=== PATIENT | female | born 1955 | race Caucasian/White ===

== ENCOUNTER → 2016-03-02 | Outpatient (CLI) | payer OTHER ==
[~2016-03-02] MED LIST: 00186-0370-20 IH; ALBUTEROL S0.4 MG/ML; AMBIEN 5MG TABLE5 MG PO; ASPI325T6 PO; ASPIRIN 81M81 MG/TA2 PO; ATARAX10 MG PO; ATORVASTATIN; CALTRATE-600 W600 MG PO; CARBIDOPA & LEV1 TAB PO; CELEXA40 MG PO; CHANTIX 1MG1 MG PO; CITALOPRAM40 MG PO; CLARITIN 1010 MG/TAB PO; COLACE 100100 MG/CAP PO; CRESTOR5 MG PO; DEPAKOTE500 MG PO; DIOVAN80 M1 PO; ECOTRIN325 MG PO; EFFIENT10 MG PO; EPA FISH OIL1 SGL PO; FLEXERIL 1010 MG/TAB PO; FOLIC ACID0.4 MG PO; HALDOL .5M0.5 MG/TAB PO; HALDOL 1MG T1 MG/TAB PO; HALDOL1 MG PO; HYOSCYAMINE; INDERAL LA 60MG60 MG PO; INDERAL60 MG PO; IPRATROPIUM BROM3 M1 IH; IRON325 M1 PO; K-DUR; KLONOPIN 1MG1 MG PO; KLOR-CON 1010 MEQ PO; LEXAPRO 10MG10 MG PO; LEXAPRO20 MG PO; LIBRIUM; LIPITOR 40MG TA40 MG PO; LISINOPRIL20 MG PO; LOPRESSOR 225 MG/TAB PO; MAG-OX 400400 MG/TAB PO; MIRALAX PA17 GM/Dose PO; MIRAPEX; MOTRIN 600600 MG/TAB PO; MULTI VITAMINS1 TAB PO; NIASPAN1000 MG PO; NIASPAN500 MG PO; NITROSTAT0.4 MG/TAB SL; NORCO 325 MG-51 TAB PO; NORVASC2.5 MG PO; PEPCID 20MG TAB20 MG PO; PLAVIX 75MG TAB75 MG PO; PRAVACHOL 20MG20 MG PO; PREDNISONE20 MG PO; PRILOSEC 20MG20 MG PO; PROBIOTIC FORMU1 CAP PO; PROTONIX 40MG T40 MG PO; PROTONIX40 MG PO; PROTONIX40 MG/Pack PO; PROVENTIL0.09 MG/A1 IH; RANEXA1000 MG PO; RT SPIRIVA18 MCG IH; SINGULAIR 110 MG/TAB PO; SINGULAIR10 MG PO; SYMBICORT1 AE1 IH; TETRACYCLI500 MG/CAP PO; THEO-24100 MG PO; TRILIPIX 135MG PO; TYLENOL 325MG325 MG PO; TYLENOL EXTRA500 M1 PO; VENTOLIN0.09 MG IH; VESICARE 5MG5 MG PO; VESICARE10 MG PO; VESICARE5 MG PO; VITAMIN B12 1541 TAB PO; VRAYLAR6 MG PO; WELLBUTRIN XL300 M1 PO; XANAX .25M0.25 MG/TA PO; ZESTRIL40 MG PO; ZITHROMAX Z PA250 MG PO; [UNRECOGNIZED DRUG - OTHER]; [UNRECOGNIZED DRUG - OTHER]; [UNRECOGNIZED DRUG - OTHER]
== END ==
LOC: BHSO 15:43
DX: F20.9 Schizophrenia, unspecified (principal)

== ENCOUNTER → 2016-03-31 | Outpatient (CLI) | payer OTHER | LOC: COL.VAS 08:27 | DX: I08.0 Rheumatic disorders of both mitral and aortic valves (principal); R06.09 Other forms of dyspnea ==

== ENCOUNTER 2016-04-21 10:24 | Observation (INO) | payer OTHER ==
[~2016-04-21] VITALS: Ht 157.5 cm; Wt 91.3 kg
[~2016-04-21 10:24] MED LIST changes: -CLARITIN 1010 MG/TAB PO; -EFFIENT10 MG PO; -FOLIC ACID0.4 MG PO; -IPRATROPIUM BROM3 M1 IH; -PROBIOTIC FORMU1 CAP PO; -VITAMIN B12 1541 TAB PO; -VRAYLAR6 MG PO
[2016-04-21 11:04] LABS: BASO % 0.4 % (0.0-2.0); EOS # 0.1 (0.0-0.7); EOS % 1.8 % (0-4.0); GRAN # 4.3 (1.4-6.5); GRAN % 58.9 % (42.2-75.2); HEMATOCRIT 38.6 % (37.0-47.0); HEMOGLOBIN 12.7 g/dl (12.5-16.0); LYMPH % 26.9 % (20.0-51.0); MEAN CELL VOLUME 97 fl (80.0-100.0); MEAN CORPUSCULAR HEMOGLOBIN 32 pg (27.0-31.0); MEAN CORPUSCULAR HGB CONC 33 g/dl (33.0-37.0); MEAN PLATELET VOLUME 10.8 fl (7.4-10.4); MONO # 0.8 (0.1-0.6); MONO % 10.6 % (1.7-9.3); PLATELET COUNT 279 K/mm3 (130-400); RED BLOOD COUNT 3.97 M/mm3 (4.10-5.30); REDCELL DISTRIBUTION WIDTH-CV 12.8 % (11.5-14.5); WHITE BLOOD COUNT 7.3 K/mm3 (4.8-10.8)
[2016-04-21 11:12] LABS: INR 1.2 (0.8-3.0); PROTHROMBIN TIME 13.1 SECONDS (9.7-12.8)
[2016-04-21 11:39] LABS: ADJUSTED CALCIUM 9.6 mg/dL (8.4-10.2); ALANINE AMINOTRANSFERASE 18 U/L (9-52); ALBUMIN 4.3 gm/dL (3.5-5.0); ALKALINE PHOSPHATASE 57 U/L (50-136); ANION GAP 15 mmol/L (7-16); BLOOD UREA NITROGEN 17 mg/dL (7-17); C-REACTIVE PROTEIN 0.9 mg/dL (0.0-0.9); CALCIUM 9.8 mg/dL (8.4-10.2); CARBON DIOXIDE 24 mmol/L (22-30); CHLORIDE 103 mmol/L (98-107); CREATININE, serum 0.84 mg/dL (0.52-1.25); GLUCOSE 96 mg/dL (74-106); POTASSIUM 4.3 mmol/L (3.4-5.0); SODIUM 142 mmol/L (137-145); TOTAL PROTEIN 8.1 gm/dL (6.4-8.2)
[2016-04-21 11:58] LABS: TROPONIN-I < 0.012 ng/mL (0.000-0.034)
[2016-04-21] MEDS ORDERED: FOLIC ACID0.4 MG PO (12:16)
[2016-04-21] MEDS ORDERED: VRAYLAR6 MG PO (12:17)
[2016-04-21 15:32] VITALS: BP 123/67; PULSE 64
[2016-04-21 15:43] VITALS: BP 123/67; PULSE 64; TEMP 98
[2016-04-21 15:57] LABS: B-TYPE NATRIURETIC PEPTIDE 101 pg/mL (0-125)
[2016-04-21 19:44] VITALS: BP 121/59; PULSE 68; TEMP 98.6
[2016-04-21 23:15] VITALS: BP 120/62; PULSE 66; TEMP 98.4
[2016-04-22 03:42] VITALS: BP 113/53; PULSE 63; TEMP 98.7
[2016-04-22 07:39] VITALS: BP 126/61; PULSE 71; TEMP 97.3
[2016-04-22 11:07] VITALS: BP 114/52; PULSE 62; TEMP 98.6
[2016-04-22 16:30] VITALS: BP 137/48; PULSE 64; TEMP 98
[2016-04-22 19:39] VITALS: BP 125/62; PULSE 64; TEMP 97.6
[2016-04-22 23:43] VITALS: BP 130/59; PULSE 61; TEMP 97.7
[2016-04-23 03:29] VITALS: BP 117/61; PULSE 45; TEMP 98.1
[2016-04-23 08:14] VITALS: BP 138/49; PULSE 67; TEMP 97.2
[2016-04-23 11:37] VITALS: BP 123/60; PULSE 64; TEMP 98.2
[2016-04-23 16:00] VITALS: BP 147/66; PULSE 67; TEMP 97.4
[2016-04-23 20:02] VITALS: BP 125/51; PULSE 66; TEMP 98.5
[2016-04-23 22:33] VITALS: BP 125/61; PULSE 66; TEMP 97.6
[2016-04-24 03:11] VITALS: BP 113/53; PULSE 112; TEMP 97.4
[2016-04-24 07:38] VITALS: BP 147/75; PULSE 68; TEMP 97.7
== END 2016-04-24 13:00 | disposition home or self-care (01) ==
LOC: COL.ER 10:24 → MEDICAL 11:57
PROVIDERS: Family Medicine
DX: G45.9 Transient cerebral ischemic attack, unspecified (principal); E86.0 Dehydration; R42 Dizziness and giddiness; F41.1 Generalized anxiety disorder; F32.9 Major depressive disorder, single episode, unspecified; E66.9 Obesity, unspecified; E78.1 Pure hyperglyceridemia; Z79.899 Other long term (current) drug therapy; Z79.82 Long term (current) use of aspirin; I10 Essential (primary) hypertension; Z87.891 Personal history of nicotine dependence; J44.9 Chronic obstructive pulmonary disease, unspecified; G47.33 Obstructive sleep apnea (adult) (pediatric); Z79.02 Long term (current) use of antithrombotics/antiplatelets; M47.892 Other spondylosis, cervical region; M51.24 Other intervertebral disc displacement, thoracic region
CPT/HCPCS: 99222-AI; 99239; A9585; G0378; G8978-GP; G8979-GP; J7030

== ENCOUNTER → 2016-04-30 | Outpatient (CLI) | payer OTHER ==
[~2016-04-30] MED LIST changes: +CLARITIN 1010 MG/TAB PO; +EFFIENT10 MG PO; +FOLIC ACID0.4 MG PO; +IPRATROPIUM BROM3 M1 IH; +PROBIOTIC FORMU1 CAP PO; +VITAMIN B12 1541 TAB PO; +VRAYLAR6 MG PO
== END ==
LOC: BHSO 15:52
DX: F20.89 Other schizophrenia (principal)

== ENCOUNTER → 2016-05-28 | Outpatient (CLI) | payer OTHER | LOC: COL.RAD 07:48 | DX: I73.89 Other specified peripheral vascular diseases (principal); M51.26 Other intervertebral disc displacement, lumbar region; G45.8 Other transient cerebral ischemic attacks and related syndromes; Z90.49 Acquired absence of other specified parts of digestive tract; Z90.710 Acquired absence of both cervix and uterus | CPT/HCPCS: Q9967 ==

== ENCOUNTER → 2016-06-02 | Outpatient (CLI) | payer OTHER | LOC: MC.RAD 10:00 | DX: Z12.31 Encounter for screening mammogram for malignant neoplasm of breast (principal) ==

== ENCOUNTER → 2016-06-09 | Outpatient (CLI) | payer OTHER | LOC: COL.RAD 12:38 | DX: E04.2 Nontoxic multinodular goiter (principal) ==

== ENCOUNTER → 2016-07-09 | Outpatient (CLI) | payer OTHER | LOC: BHSO 15:50 | DX: F20.9 Schizophrenia, unspecified (principal) ==

== ENCOUNTER 2016-07-31 11:15 | Outpatient (RCR) | payer OTHER ==
[~2016-07-31 11:15] MED LIST changes: -CLARITIN 1010 MG/TAB PO; -EFFIENT10 MG PO; -IPRATROPIUM BROM3 M1 IH; -PROBIOTIC FORMU1 CAP PO; -VITAMIN B12 1541 TAB PO
== END 2016-08-04 | disposition home or self-care (01) ==
LOC: MKS.ESL.PT
DX: R53.1 Weakness (principal); Z86.73 Personal history of transient ischemic attack (TIA), and cerebral infarction without residual deficits; Z91.81 History of falling

== ENCOUNTER 2016-08-14 08:25 | Outpatient (CLI) | payer OTHER ==
[~2016-08-14] VITALS: Ht 157.5 cm; Wt 96.8 kg
[2016-08-14] VITALS (16 sets, daily range): BP systolic 115–153; BP diastolic 55–88; PULSE 61–76; TEMP 98
[2016-08-14 09:07] LABS: HEMATOCRIT 35.4 % (37.0-47.0); HEMOGLOBIN 11.8 g/dl (12.5-16.0); MEAN CELL VOLUME 99 fl (80.0-100.0); MEAN CORPUSCULAR HEMOGLOBIN 33 pg (27.0-31.0); MEAN CORPUSCULAR HGB CONC 33 g/dl (33.0-37.0); MEAN PLATELET VOLUME 11.3 fl (7.4-10.4); PLATELET COUNT 301 K/mm3 (130-400); RED BLOOD COUNT 3.59 M/mm3 (4.10-5.30); REDCELL DISTRIBUTION WIDTH-CV 11.9 % (11.5-14.5); WHITE BLOOD COUNT 5.1 K/mm3 (4.8-10.8)
[2016-08-14 09:12] LABS: INR 1.1 (0.8-3.0)
[2016-08-14 09:19] LABS: CALCIUM 9.5 mg/dL (8.4-10.2); CREATININE, serum 0.88 mg/dL (0.52-1.25)
[2016-08-14] MEDS ORDERED: FLEXERIL 1010 MG/TAB PO (09:27)
[2016-08-14] MEDS ORDERED: 00186-0370-20 IH (09:29)
[2016-08-14] MEDS ORDERED: IPRATROPIUM BROM3 M1 IH (09:34)
[2016-08-14] MEDS ORDERED: CLARITIN 1010 MG/TAB PO (09:39)
[2016-08-14] MEDS ORDERED: EFFIENT10 MG PO (09:39)
== END 2016-08-14 14:15 | disposition home or self-care (01) ==
LOC: EUO 08:25 → COL.RAD 08:30 → EUO 14:15
PROVIDERS: Internal Medicine Interventional Cardiology
DX: G45.9 Transient cerebral ischemic attack, unspecified (principal); I35.1 Nonrheumatic aortic (valve) insufficiency; I73.9 Peripheral vascular disease, unspecified; I25.10 Atherosclerotic heart disease of native coronary artery without angina pectoris; Z85.528 Personal history of other malignant neoplasm of kidney; Z87.891 Personal history of nicotine dependence
CPT/HCPCS: J2250; J3010

== ENCOUNTER 2016-08-26 11:15 | Outpatient (RCR) | payer OTHER ==
[~2016-08-26 11:15] MED LIST changes: +CLARITIN 1010 MG/TAB PO; +EFFIENT10 MG PO; +IPRATROPIUM BROM3 M1 IH
== END 2016-08-27 10:28 | disposition home or self-care (01) ==
LOC: MKS.ESL.PT 11:15
DX: W19.XXXA Unspecified fall, initial encounter (principal); R53.1 Weakness; Z86.73 Personal history of transient ischemic attack (TIA), and cerebral infarction without residual deficits

== ENCOUNTER → 2016-09-03 | Outpatient (CLI) | payer OTHER ==
[~2016-09-03] MED LIST changes: +PROBIOTIC FORMU1 CAP PO; +VITAMIN B12 1541 TAB PO
== END ==
LOC: BHSO 14:18
DX: F20.9 Schizophrenia, unspecified (principal)

== ENCOUNTER 2016-09-21 09:18 | Observation (INO) | payer OTHER ==
[~2016-09-21] VITALS: Ht 157.5 cm; Wt 98.3 kg
[~2016-09-21 09:18] MED LIST changes: -PROBIOTIC FORMU1 CAP PO; -VITAMIN B12 1541 TAB PO
[2016-09-21 10:06] LABS: MEAN CELL VOLUME 97 fl (80.0-100.0); MEAN CORPUSCULAR HGB CONC 34 g/dl (33.0-37.0); MEAN PLATELET VOLUME 11.2 fl (7.4-10.4); PLATELET COUNT 260 K/mm3 (130-400); RED BLOOD COUNT 3.62 M/mm3 (4.10-5.30); REDCELL DISTRIBUTION WIDTH-CV 12.4 % (11.5-14.5)
[2016-09-21 10:14] LABS: HEMATOCRIT 35.2 % (37.0-47.0); HEMOGLOBIN 11.9 g/dl (12.5-16.0); MEAN CORPUSCULAR HEMOGLOBIN 33 pg (27.0-31.0)
[2016-09-21 10:15] LABS: ADD PATHOLOGY DIFF REVIEW NO
[2016-09-21 10:16] LABS: INR 1.1 (0.8-3.0); PROTHROMBIN TIME 11.8 SECONDS (9.7-12.8)
[2016-09-21 10:34] LABS: ADJUSTED CALCIUM 9.2 mg/dL (8.4-10.2); ALANINE AMINOTRANSFERASE 19 U/L (9-52); ALBUMIN 4.4 gm/dL (3.5-5.0); ALKALINE PHOSPHATASE 59 U/L (50-136); ANION GAP 14 mmol/L (7-16); BILIRUBIN,TOTAL 0.7 mg/dL (0.0-1.0); BLOOD UREA NITROGEN 16 mg/dL (7-17); CALCIUM 9.5 mg/dL (8.4-10.2); CARBON DIOXIDE 24 mmol/L (22-30); CHLORIDE 104 mmol/L (98-107); CREATININE, serum 0.87 mg/dL (0.52-1.25); GLUCOSE 93 mg/dL (74-106); SODIUM 141 mmol/L (137-145); TOTAL PROTEIN 7.8 gm/dL (6.4-8.2)
[2016-09-21 10:39] LABS: BAND 4 % (0-10); BASOPHIL 1 % (0-2); C-REACTIVE PROTEIN < 0.5 mg/dL (0.0-0.9); EOSINOPHIL 3 % (0-4); METAMYELOCYTE 1 % (0-0); NEUTROPHILS 42 % (42.0-75.2); TOTAL CELLS COUNTED 100
[2016-09-21 10:40] LABS: PLATELET ESTIMATE NORMAL (NORMAL)
[2016-09-21 10:43] LABS: POLYCHROMASIA 1+
[2016-09-21 10:48] LABS: PH 6 (5-8); URINE APPEARANCE Hazy; URINE BACTERIA Rare /hpf; URINE BILIRUBIN Negative (NEGATIVE); URINE BLOOD Negative (NEGATIVE); URINE COLOR Yellow; URINE GLUCOSE Negative (NEGATIVE); URINE KETONE Negative (NEGATIVE); URINE RBC 0-2 /hpf; URINE UROBILINOGEN Negative (NEGATIVE)
[2016-09-21] MEDS ORDERED: VITAMIN B12 1541 TAB PO (12:42)
[2016-09-21] MEDS ORDERED: MULTI VITAMINS1 TAB PO (12:42)
[2016-09-21 13:16] VITALS: BP 132/56; PULSE 63; TEMP 97.7
[2016-09-21 15:48] LABS: MAGNESIUM 1.5 mg/dL (1.6-2.3)
[2016-09-21 16:24] VITALS: BP 129/59; PULSE 65; TEMP 97.7
[2016-09-21 20:10] VITALS: BP 150/62; PULSE 66; TEMP 98.2
[2016-09-21 23:41] VITALS: BP 137/54; PULSE 68; TEMP 97.3
[2016-09-22 03:56] VITALS: BP 147/52; PULSE 67; TEMP 97.2
[2016-09-22 09:06] VITALS: BP 142/48; PULSE 77; TEMP 98.4
[2016-09-22 12:01] VITALS: BP 136/58; PULSE 68; TEMP 97.6
[2016-09-22 16:26] VITALS: BP 127/54; PULSE 62; TEMP 98.2
[2016-09-22 19:30] VITALS: BP 144/68; PULSE 64; TEMP 97.8
[2016-09-22 23:48] VITALS: BP 136/52; PULSE 62; TEMP 98.1
[2016-09-23 03:35] VITALS: BP 128/47; PULSE 62; TEMP 98.1
[2016-09-23 07:55] VITALS: BP 136/51; PULSE 68; TEMP 98.3
== END 2016-09-23 11:40 | disposition home or self-care (01) ==
LOC: COL.ER 09:18 → MEDICAL 11:16 → COL.ER 11:16 → MEDICAL 09-23 11:40
PROVIDERS: Family Medicine
DX: R42 Dizziness and giddiness (principal); M62.81 Muscle weakness (generalized); J44.9 Chronic obstructive pulmonary disease, unspecified; I10 Essential (primary) hypertension; I35.1 Nonrheumatic aortic (valve) insufficiency; K21.9 Gastro-esophageal reflux disease without esophagitis; E78.5 Hyperlipidemia, unspecified; F32.9 Major depressive disorder, single episode, unspecified; F41.9 Anxiety disorder, unspecified; E86.0 Dehydration; M19.90 Unspecified osteoarthritis, unspecified site; K58.9 Irritable bowel syndrome, unspecified; G25.81 Restless legs syndrome; G47.33 Obstructive sleep apnea (adult) (pediatric); E78.1 Pure hyperglyceridemia; I73.9 Peripheral vascular disease, unspecified; Z90.49 Acquired absence of other specified parts of digestive tract; Z90.711 Acquired absence of uterus with remaining cervical stump; Z90.5 Acquired absence of kidney; Z85.528 Personal history of other malignant neoplasm of kidney; Z86.73 Personal history of transient ischemic attack (TIA), and cerebral infarction without residual deficits; Z87.891 Personal history of nicotine dependence; Z85.828 Personal history of other malignant neoplasm of skin; Z83.3 Family history of diabetes mellitus; Z80.3 Family history of malignant neoplasm of breast
CPT/HCPCS: 99222-AI; A9585; G0378; G8978-GP; G8979-GP; G8987-GO; G8988-GO; G8999-GN; G9186-GN; J1650; J7030

== ENCOUNTER → 2016-10-15 | Outpatient (CLI) | payer OTHER ==
[~2016-10-15] MED LIST changes: +PROBIOTIC FORMU1 CAP PO; +VITAMIN B12 1541 TAB PO
== END ==
LOC: BHSO 13:43
DX: F20.9 Schizophrenia, unspecified (principal)

== ENCOUNTER 2016-10-30 12:34 | Outpatient (CLI) | payer OTHER ==
[~2016-10-30] VITALS: Ht 157.6 cm; Wt 99.0 kg
[~2016-10-30 12:34] MED LIST changes: -PROBIOTIC FORMU1 CAP PO
[2016-10-30 14:11] VITALS: BP 141/59; PULSE 59; TEMP 97.6
[2016-10-30] MEDS ORDERED: CLARITIN 1010 MG/TAB PO (14:32)
[2016-10-30] MEDS ORDERED: PROBIOTIC FORMU1 CAP PO (14:35)
[2016-10-30 15:27] VITALS: BP 135/62; PULSE 58
== END 2016-10-30 15:52 | disposition home or self-care (01) ==
LOC: COL.CAR 12:34
DX: G45.9 Transient cerebral ischemic attack, unspecified (principal); I10 Essential (primary) hypertension; J44.9 Chronic obstructive pulmonary disease, unspecified; E78.5 Hyperlipidemia, unspecified; K21.9 Gastro-esophageal reflux disease without esophagitis; I25.10 Atherosclerotic heart disease of native coronary artery without angina pectoris; I73.9 Peripheral vascular disease, unspecified; Z95.818 Presence of other cardiac implants and grafts; Z90.5 Acquired absence of kidney; Z87.891 Personal history of nicotine dependence; Z85.528 Personal history of other malignant neoplasm of kidney; Z82.49 Family history of ischemic heart disease and other diseases of the circulatory system; Z83.3 Family history of diabetes mellitus

== ENCOUNTER 2016-11-06 15:13 | Emergency (ER) | payer OTHER ==
[~2016-11-06] VITALS: Ht 157.5 cm; Wt 99.1 kg
[~2016-11-06 15:13] MED LIST changes: +PROBIOTIC FORMU1 CAP PO
[2016-11-06 15:21] VITALS: BP 134/63; PULSE 68; TEMP 98.9
== END 2016-11-06 17:05 | disposition home or self-care (01) ==
LOC: COL.ER 15:13
DX: S01.532A Puncture wound without foreign body of oral cavity, initial encounter (principal); X58.XXXA Exposure to other specified factors, initial encounter

== ENCOUNTER → 2016-11-24 | Outpatient (CLI) | payer OTHER | LOC: COL.RAD 08:15 | DX: K76.0 Fatty (change of) liver, not elsewhere classified (principal); R16.0 Hepatomegaly, not elsewhere classified; R14.0 Abdominal distension (gaseous); Z90.49 Acquired absence of other specified parts of digestive tract; Z85.528 Personal history of other malignant neoplasm of kidney ==

== ENCOUNTER → 2017-01-04 | Outpatient (CLI) | payer OTHER | LOC: COL.RAD 14:58 | DX: E04.2 Nontoxic multinodular goiter (principal) ==

== ENCOUNTER → 2017-01-26 | Outpatient (CLI) | payer OTHER | LOC: BHSO 13:27 | DX: F31.73 Bipolar disorder, in partial remission, most recent episode manic (principal) ==

== ENCOUNTER → 2017-03-25 | Outpatient (CLI) | payer OTHER | LOC: BHSO 13:17 | DX: F20.9 Schizophrenia, unspecified (principal) | CPT/HCPCS: G0463 ==

== ENCOUNTER 2017-05-12 09:01 | Emergency (ER) | payer OTHER ==
[~2017-05-12] VITALS: Ht 157.5 cm; Wt 97.3 kg
[2017-05-12 09:03] VITALS: TEMP 97.9
[2017-05-12 09:32] LABS: BASO % 0.5 % (0.0-2.0); EOS # 0.1 (0.0-0.7); EOS % 1.4 % (0-4.0); GRAN # 3.5 (1.4-6.5); GRAN % 58.4 % (42.2-75.2); HEMOGLOBIN 12.9 g/dl (12.5-16.0); LYMPH # 1.5 (1.2-3.4); LYMPH % 25.8 % (20.0-51.0); MEAN CELL VOLUME 98 fl (80.0-100.0); MEAN CORPUSCULAR HEMOGLOBIN 33 pg (27.0-31.0); MEAN CORPUSCULAR HGB CONC 34 g/dl (33.0-37.0); MEAN PLATELET VOLUME 11.1 fl (7.4-10.4); MONO # 0.7 (0.1-0.6); MONO % 12.5 % (1.7-9.3); PLATELET COUNT 274 K/mm3 (130-400); RED BLOOD COUNT 3.89 M/mm3 (4.10-5.30); REDCELL DISTRIBUTION WIDTH-CV 12.6 % (11.5-14.5)
[2017-05-12 09:42] LABS: ALANINE AMINOTRANSFERASE 28 U/L (9-52); ALKALINE PHOSPHATASE 52 U/L (50-136); ANION GAP 13 mmol/L (7-16); AST,SGOT 33 U/L (15-37); BILIRUBIN,TOTAL 0.5 mg/dL (0.0-1.0); BLOOD UREA NITROGEN 23 mg/dL (7-17); CALCIUM 9.3 mg/dL (8.4-10.2); CARBON DIOXIDE 27 mmol/L (22-30); CHLORIDE 102 mmol/L (98-107); CREATININE, serum 0.88 mg/dL (0.52-1.25); GLUCOSE 102 mg/dL (74-106); LIPASE 138 U/L (23-300); POTASSIUM 4.4 mmol/L (3.4-5.0); SODIUM 143 mmol/L (137-145); TOTAL PROTEIN 7.3 gm/dL (6.4-8.2)
[2017-05-12 09:55] LABS: TROPONIN-I < 0.012 ng/mL (0.000-0.034)
[2017-05-12 11:06] VITALS: BP 146/76
[2017-05-12 13:37] VITALS: PULSE 64
== END 2017-05-12 13:38 | disposition home or self-care (01) ==
LOC: COL.ER 09:01
PROVIDERS: Emergency Medicine
DX: R07.89 Other chest pain (principal); I10 Essential (primary) hypertension; Z98.890 Other specified postprocedural states
CPT/HCPCS: J1885; J7030

== ENCOUNTER → 2017-08-13 | Outpatient (CLI) | payer OTHER | LOC: BHSO 15:53 | DX: F20.9 Schizophrenia, unspecified (principal) | CPT/HCPCS: G0463 ==

== ENCOUNTER → 2017-08-20 | Outpatient (CLI) | payer OTHER | LOC: MC.RAD 13:28 | DX: Z12.31 Encounter for screening mammogram for malignant neoplasm of breast (principal) ==

== ENCOUNTER → 2017-10-04 | Outpatient (CLI) | payer OTHER ==
[~2017-10-04] MED LIST changes: +CRESTOR20 MG PO; +KEPPRA 500MG500 MG PO; +LOVAZA1 GM PO
== END ==
LOC: COL.CARD 12:59
DX: R56.9 Unspecified convulsions (principal); Z86.73 Personal history of transient ischemic attack (TIA), and cerebral infarction without residual deficits

== ENCOUNTER → 2017-10-15 | Outpatient (CLI) | payer OTHER | LOC: BHSO 13:18 | DX: F25.0 Schizoaffective disorder, bipolar type (principal) | CPT/HCPCS: G0463 ==

== ENCOUNTER → 2017-10-27 | Outpatient (CLI) | payer OTHER | LOC: BHSO 09:14 | DX: F25.0 Schizoaffective disorder, bipolar type (principal) | CPT/HCPCS: G0463 ==

== ENCOUNTER → 2018-01-04 | Outpatient (CLI) | payer OTHER | LOC: COL.RAD 13:19 | DX: E04.2 Nontoxic multinodular goiter (principal) ==

== ENCOUNTER → 2018-02-02 | Outpatient (CLI) | payer OTHER | LOC: BHSO 11:15 | DX: F25.0 Schizoaffective disorder, bipolar type (principal) | CPT/HCPCS: G0463 ==

== ENCOUNTER 2018-02-04 15:00 | Outpatient (RCR) | payer OTHER | END 2018-03-13 | disposition home or self-care (01) | LOC: MKS.ESL.PT | DX: I69.354 Hemiplegia and hemiparesis following cerebral infarction affecting left non-dominant side (principal); H81.13 Benign paroxysmal vertigo, bilateral; Z79.82 Long term (current) use of aspirin; Z79.899 Other long term (current) drug therapy ==

== ENCOUNTER → 2018-03-02 | Outpatient (CLI) | payer OTHER | LOC: BHSO 11:34 | DX: F25.0 Schizoaffective disorder, bipolar type (principal) | CPT/HCPCS: G0463 ==

== ENCOUNTER → 2018-03-03 | Outpatient (CLI) | payer OTHER | LOC: COL.RAD 07:43 | DX: I70.1 Atherosclerosis of renal artery (principal); N26.1 Atrophy of kidney (terminal); R19.7 Diarrhea, unspecified; R10.33 Periumbilical pain; Z90.49 Acquired absence of other specified parts of digestive tract; Z90.710 Acquired absence of both cervix and uterus | CPT/HCPCS: Q9967 ==

== ENCOUNTER → 2018-04-27 | Outpatient (CLI) | payer OTHER | LOC: BHSO 13:55 | DX: F25.0 Schizoaffective disorder, bipolar type (principal) | CPT/HCPCS: G0463 ==

== ENCOUNTER 2018-06-15 14:15 | Outpatient (RCR) | payer OTHER | END 2018-06-16 13:54 | disposition home or self-care (01) | LOC: MKS.ESL.PT 14:15 | DX: J98.4 Other disorders of lung (principal); R53.1 Weakness ==

== ENCOUNTER → 2018-07-27 | Outpatient (CLI) | payer OTHER | LOC: BHSO 13:14 | DX: F25.0 Schizoaffective disorder, bipolar type (principal) | CPT/HCPCS: G0463 ==

== ENCOUNTER → 2018-08-31 | Outpatient (CLI) | payer OTHER | LOC: COL.RAD 10:53 | DX: N26.1 Atrophy of kidney (terminal) (principal); R10.31 Right lower quadrant pain; R19.7 Diarrhea, unspecified; Z95.828 Presence of other vascular implants and grafts; Z90.710 Acquired absence of both cervix and uterus; Z90.49 Acquired absence of other specified parts of digestive tract | CPT/HCPCS: Q9967 ==

== ENCOUNTER → 2018-09-09 | Outpatient (CLI) | payer OTHER ==
[~2018-09-09] MED LIST changes: +ZOFRAN ODT4 MG PO
== END ==
LOC: COL.LAB 12:32
DX: R10.84 Generalized abdominal pain (principal); R19.7 Diarrhea, unspecified

== ENCOUNTER 2018-09-10 12:23 | Emergency (ER) | payer OTHER ==
[~2018-09-10] VITALS: Ht 157.5 cm; Wt 88.2 kg
[~2018-09-10 12:23] MED LIST changes: -ZOFRAN ODT4 MG PO
[2018-09-10 12:27] VITALS: BP 183/88; TEMP 97.8
[2018-09-10 13:02] LABS: HEMOGLOBIN 13.5 g/dl (12.5-16.0); MEAN CELL VOLUME 98 fl (80.0-100.0); MEAN CORPUSCULAR HEMOGLOBIN 33 pg (27.0-31.0); MEAN CORPUSCULAR HGB CONC 34 g/dl (33.0-37.0); MEAN PLATELET VOLUME 10.5 fl (7.4-10.4); PLATELET COUNT 401 K/mm3 (130-400); REDCELL DISTRIBUTION WIDTH-CV 12.5 % (11.5-14.5)
[2018-09-10 13:29] LABS: ALANINE AMINOTRANSFERASE < 6 U/L (9-52); ALBUMIN 4.4 gm/dL (3.5-5.0); ALKALINE PHOSPHATASE 72 U/L (50-136); ANION GAP 13 mmol/L (7-16); AST,SGOT 39 U/L (15-37); BILIRUBIN,TOTAL 0.5 mg/dL (0.0-1.0); BLOOD UREA NITROGEN 18 mg/dL (7-17); C-REACTIVE PROTEIN 0.7 mg/dL (0.0-0.9); CALCIUM 10.1 mg/dL (8.4-10.2); CARBON DIOXIDE 22 mmol/L (22-30); CHLORIDE 109 mmol/L (98-107); CREATININE, serum 0.76 (0.52-1.25); GLUCOSE 103 mg/dL (74-106); POTASSIUM 4.3 mmol/L (3.4-5.0); SODIUM 144 mmol/L (137-145); TOTAL PROTEIN 8.5 gm/dL (6.4-8.2)
[2018-09-10 13:53] LABS: LIPASE 6589 U/L (23-300)
[2018-09-10 14:03] LABS: COLLECTION METHOD CLEAN CATCH
[2018-09-10 14:15] LABS: MUCOUS Present /lpf; PH 5 (5-8); SQUAMOUS EPITHELIAL 0-2 /hpf; URINE APPEARANCE Hazy; URINE BACTERIA None Seen /hpf; URINE BILIRUBIN Negative (NEGATIVE); URINE BLOOD Negative (NEGATIVE); URINE COLOR Yellow; URINE GLUCOSE Negative (NEGATIVE); URINE KETONE Negative (NEGATIVE); URINE LEUKOCYTE ESTERASE Negative (NEGATIVE); URINE NITRATE Negative (NEGATIVE); URINE PROTEIN(semi-quant) 1+ (NEGATIVE); URINE RBC 0-2 /hpf; URINE UROBILINOGEN Negative (NEGATIVE)
[2018-09-10 14:26] LABS: BAND 4 % (0-10); EOSINOPHIL 2 % (0-4); LYMPHOCYTE 8 % (20.0-51.0); NEUTROPHILS 80 % (42.0-75.2); PLATELET ESTIMATE INCREASED (NORMAL)
[2018-09-10] MEDS ORDERED: ZOFRAN ODT4 MG PO (16:24)
[2018-09-10 16:45] VITALS: PULSE 73
== END 2018-09-10 16:47 | disposition home or self-care (01) ==
LOC: COL.ER 12:23
PROVIDERS: Physician Assistant
DX: K85.90 Acute pancreatitis without necrosis or infection, unspecified (principal); R19.7 Diarrhea, unspecified; E78.1 Pure hyperglyceridemia; I25.10 Atherosclerotic heart disease of native coronary artery without angina pectoris; K58.9 Irritable bowel syndrome, unspecified; I10 Essential (primary) hypertension; M79.7 Fibromyalgia; J44.9 Chronic obstructive pulmonary disease, unspecified; F31.9 Bipolar disorder, unspecified; Z86.73 Personal history of transient ischemic attack (TIA), and cerebral infarction without residual deficits; Z90.710 Acquired absence of both cervix and uterus; Z87.891 Personal history of nicotine dependence; Z85.528 Personal history of other malignant neoplasm of kidney
CPT/HCPCS: J2405; J7030; Q9967

== ENCOUNTER → 2018-09-12 | Outpatient (CLI) | payer OTHER ==
[~2018-09-12] MED LIST changes: +ZOFRAN ODT4 MG PO
[2018-09-12 11:09] LABS: EOS # 0.4 (0.0-0.7); EOS % 6.2 % (0-4.0); GRAN # 3.4 (1.4-6.5); GRAN % 56.6 % (42.2-75.2); HEMATOCRIT 37.8 % (37.0-47.0); HEMOGLOBIN 12.6 g/dl (12.5-16.0); LYMPH # 1.4 (1.2-3.4); LYMPH % 23.1 % (20.0-51.0); MEAN CELL VOLUME 100 fl (80.0-100.0); MEAN CORPUSCULAR HEMOGLOBIN 33 pg (27.0-31.0); MEAN CORPUSCULAR HGB CONC 33 g/dl (33.0-37.0); MEAN PLATELET VOLUME 10.4 fl (7.4-10.4); MONO # 0.8 (0.1-0.6); MONO % 13.8 % (1.7-9.3); PLATELET COUNT 335 K/mm3 (130-400); REDCELL DISTRIBUTION WIDTH-CV 12.4 % (11.5-14.5)
[2018-09-12 11:15] LABS: ALBUMIN 3.9 gm/dL (3.5-5.0); BILIRUBIN,TOTAL 0.6 mg/dL (0.0-1.0); CALCIUM 9.3 mg/dL (8.4-10.2); CREATININE, serum 0.65 (0.52-1.25); POTASSIUM 3.8 mmol/L (3.4-5.0); TOTAL PROTEIN 7.5 gm/dL (6.4-8.2)
== END ==
LOC: COL.LAB 10:13
PROVIDERS: Internal Medicine
DX: R10.30 Lower abdominal pain, unspecified (principal)

== ENCOUNTER → 2018-10-10 | Outpatient (CLI) | payer OTHER | LOC: MC.RAD 13:24 | DX: Z12.31 Encounter for screening mammogram for malignant neoplasm of breast (principal); N64.89 Other specified disorders of breast ==

== ENCOUNTER → 2018-10-13 | Outpatient (CLI) | payer OTHER | LOC: MC.RAD 13:45 | DX: N64.89 Other specified disorders of breast (principal) | CPT/HCPCS: G0279 ==

== ENCOUNTER → 2018-10-24 | Outpatient (CLI) | payer OTHER | LOC: BHSO 13:15 | DX: F25.0 Schizoaffective disorder, bipolar type (principal) | CPT/HCPCS: G0463 ==

== ENCOUNTER → 2018-11-25 | Outpatient (CLI) | payer OTHER, MEDICARE | LOC: COL.RAD 11:05 | DX: E04.2 Nontoxic multinodular goiter (principal); I65.23 Occlusion and stenosis of bilateral carotid arteries ==

== ENCOUNTER 2019-01-03 04:57 | Inpatient (IN) | payer OTHER, MEDICARE ==
[~2019-01-03] VITALS: Ht 157.5 cm; Wt 89.0 kg
[2019-01-03 05:18] LABS: HEMOGLOBIN 11.6 g/dl (12.5-16.0); MEAN CELL VOLUME 100 fl (80.0-100.0); MEAN CORPUSCULAR HEMOGLOBIN 33 pg (27.0-31.0); MEAN CORPUSCULAR HGB CONC 33 g/dl (33.0-37.0); MEAN PLATELET VOLUME 10.6 fl (7.4-10.4); PLATELET COUNT 272 K/mm3 (130-400); RED BLOOD COUNT 3.49 M/mm3 (4.10-5.30); REDCELL DISTRIBUTION WIDTH-CV 12.7 % (11.5-14.5)
[2019-01-03 05:29] LABS: HEMATOCRIT 34.9 % (37.0-47.0)
[2019-01-03 05:31] LABS: INR 1.1 (0.8-3.0); PROTHROMBIN TIME 13.1 SECONDS (9.7-12.8)
[2019-01-03 05:35] LABS: ALANINE AMINOTRANSFERASE 8 U/L (9-52); ALBUMIN 4.2 gm/dL (3.5-5.0); ALKALINE PHOSPHATASE 54 U/L (50-136); ANION GAP 12 mmol/L (7-16); AST,SGOT 23 U/L (15-37); BILIRUBIN,TOTAL 0.5 mg/dL (0.0-1.0); BLOOD UREA NITROGEN 24 mg/dL (7-17); CALCIUM 9.5 mg/dL (8.4-10.2); CARBON DIOXIDE 24 mmol/L (22-30); CHLORIDE 107 mmol/L (98-107); CREATININE, serum 0.85 (0.52-1.25); GLUCOSE 92 mg/dL (74-106); POTASSIUM 4.4 mmol/L (3.4-5.0); SODIUM 143 mmol/L (137-145); TOTAL PROTEIN 7.9 gm/dL (6.4-8.2)
[2019-01-03 05:47] LABS: TROPONIN-I < 0.012 ng/mL (0.000-0.035)
[2019-01-03 06:01] LABS: BAND 6 % (0-10); BASOPHIL 1 % (0-2); EOSINOPHIL 1 % (0-4); LYMPHOCYTE 29 % (20.0-51.0); METAMYELOCYTE 1 % (0-0); NEUTROPHILS 54 % (42.0-75.2); PLATELET ESTIMATE NORMAL (NORMAL)
[2019-01-03] MEDS ORDERED: TYLENOL 8 HR PO (08:20)
[2019-01-03] MEDS ORDERED: FLEXERIL 1010 MG/TAB PO (08:20)
[2019-01-03] MEDS ORDERED: OTEZLA PO (08:20)
[2019-01-03] MEDS ORDERED: EPA FISH OIL1 SGL PO (08:21)
[2019-01-03] MEDS ORDERED: VESICARE10 MG PO (08:21)
[2019-01-03] MEDS ORDERED: PROTONIX 40MG T40 MG PO ×2 (08:22→08:28)
[2019-01-03] MEDS ORDERED: KLONOPIN 1MG1 MG PO (08:24)
[2019-01-03] MEDS ORDERED: EFFEXOR-XR150 MG PO (08:25)
[2019-01-03] MEDS ORDERED: PLETAL50 MG PO (08:25)
[2019-01-03] MEDS ORDERED: PRINIVIL40 MG PO (08:26)
[2019-01-03] MEDS ORDERED: TRILIPIX 135MG PO (08:26)
[2019-01-03] MEDS ORDERED: CRESTOR20 MG PO (08:26)
[2019-01-03] MEDS ORDERED: LOVAZA1 GM PO (08:26)
[2019-01-03] MEDS ORDERED: FOLIC ACID 11 MG/TA1 PO (08:27)
[2019-01-03] MEDS ORDERED: SINGULAIR 110 MG/TAB PO (08:27)
[2019-01-03] MEDS ORDERED: CROLOM 10 ML10 ML OP (08:27)
[2019-01-03] MEDS ORDERED: KEPPRA 500MG500 MG PO (08:28)
[2019-01-03] MEDS ORDERED: THEO-24 30300 MG/CAP PO (08:28)
[2019-01-03] MEDS ORDERED: IPRATROPIUM BROM3 M1 IH (08:32)
[2019-01-03] MEDS ORDERED: IMDUR 60MG60 MG/TAB PO (08:33)
[2019-01-03] MEDS ORDERED: EFFIENT10 MG PO (08:33)
[2019-01-03] MEDS ORDERED: RANEXA1000 MG PO (08:33)
[2019-01-03] MEDS ORDERED: VRAYLAR6 MG PO (08:34)
[2019-01-03] MEDS ORDERED: ASPIRIN 81M81 MG/TA2 PO (08:34)
[2019-01-03] MEDS ORDERED: INDERAL60 MG PO (08:34)
[2019-01-03] MEDS ORDERED: B-121000 MCG PO (08:35)
[2019-01-03] MEDS ORDERED: PROVENTIL0.09 MG/A1 IH (08:36)
[2019-01-03] MEDS ORDERED: NITROSTAT0.4 MG/TAB SL (08:36)
[2019-01-03] MEDS ORDERED: DEPAKOTE500 MG PO (08:36)
[2019-01-03] MEDS ORDERED: MULTIPLE VITAMI1 TA5 PO (08:36)
[2019-01-03 12:21] VITALS: BP 142/54; PULSE 71; TEMP 98.2
--- NOTE | 2019-01-03 13:00 | NUR ---
Pt settled in by charge nurse d\t this nurse unable to leave another pt room. Pt admitted to medical floor and moved to room closer to nurse station d/t report from family of hallucinations and confusion. Pt alert and oriented at admission. Pt has left orbital laceration dressed with guaze and saturated with blood clot starting to form. Dressing changed with new gauze and paper tape. Pt Neuro WNL. Pt reports hip pain and left eye pain. PRN Tylenol to manage. Pt oriented to room and daughters at bedside.
[2019-01-03 16:58] VITALS: BP 131/55; PULSE 90; TEMP 97.4
--- NOTE | 2019-01-03 19:52 | NUR ---
Pt stable and left eye seen again by Dr. López and hemostat absorb applied and gauze with paper tape. NNO. Keep changing dressing as needed. Pt VS WNL. Pt neuro WNL. Pt confused at times and will state she sees something that is not there to her daughter but not observed by her nurse. Pt answers orientation questions correctly. Pt has fall precautions in place and call light in reach. Pt 1-2 assist to BSC d\t pain in left hip. Pt pain managed with PRN Tylenol.
[2019-01-03 19:53] VITALS: BP 98/58; PULSE 86; TEMP 97.2
[2019-01-03 23:01] VITALS: BP 99/47; PULSE 80; TEMP 97.8
[2019-01-04 03:29] VITALS: BP 100/44; PULSE 80; TEMP 97.4
--- NOTE | 2019-01-04 05:26 | NUR ---
PT CONTINUED TO OOZE FROM HER LACERATION TO L EYE. STERI STRIPS IN PLACE WITH HEMASTAT TO SITE. DRESSING CHANGED EVERY HOUR. AROUND 2200 PT FALLING ASLEEP, AND TALKING IN HER SLEEP AND PULLING AT DRESSING TO EYE. LARGE CLOT NEXT TO HEMASTAT. DRESSING CAREFULLY REMOVED AND REAPPLIED 3 4X4'S FOLDED AND TAPED IN PLACE. PLACED A ROLL OF FLUFF GAUZE AROUND PT HEAD, COVERING LEFT EYE AND DRESSING. WAS ABLE TO LEAVE DRESSING IN PLACE X 3 HOURS BEFORE SOAKED WITH BLOOD. HAD DENIED PAIN. BRUISING INCREASING AROUND L EYE. EYE REMAINS BLOODSHOT. MONITORING CLOSELY THIS SHIFT. DAUGHTER SPENT THE NIGHT AT BEDSIDE. CALL LIGHT IN REACH. BED ALARM ON.
--- NOTE | 2019-01-04 07:00 | NUR ---
Report received from PHYLLIS Yeung. Pt in bed resting, eye dressing needs changed, will continue to monitor.
[2019-01-04 07:46] VITALS: BP 108/53; PULSE 94; TEMP 97.5
[2019-01-04 08:04] LABS: HEMOGLOBIN 11.1 g/dl (12.5-16.0); MEAN CELL VOLUME 100 fl (80.0-100.0); MEAN CORPUSCULAR HEMOGLOBIN 33 pg (27.0-31.0); MEAN CORPUSCULAR HGB CONC 33 g/dl (33.0-37.0); MEAN PLATELET VOLUME 10.7 fl (7.4-10.4); PLATELET COUNT 260 K/mm3 (130-400); RED BLOOD COUNT 3.33 M/mm3 (4.10-5.30)
[2019-01-04 08:05] LABS: HEMATOCRIT 33.2 % (37.0-47.0)
[2019-01-04 08:20] LABS: CHOLESTEROL RISK RATIO 5.6; CREATININE, serum 0.92 (0.52-1.25); MAGNESIUM 1.7 mg/dL (1.6-2.3); POTASSIUM 4.4 mmol/L (3.4-5.0)
[2019-01-04 08:29] LABS: TROPONIN-I 0.023 ng/mL (0.000-0.035)
[2019-01-04 08:47] LABS: BAND 1 % (0-10); EOSINOPHIL 1 % (0-4); HYPOCHROMIA 1+; LYMPHOCYTE 34 % (20.0-51.0); METAMYELOCYTE 1 % (0-0); NEUTROPHILS 56 % (42.0-75.2); PLATELET ESTIMATE NORMAL (NORMAL)
--- NOTE | 2019-01-04 10:00 | NUR ---
Changed dressing on eye. pt able to move eye, follow commands, pupil reactive to light, eye is very bloodshot and pt c/o blurred vision. Laceration is still bleeding actively and dressing had to be changed and enforced, cleaned around eye with sterile saline. Assessment charted, pt c/o pain to L hip at 8/10, PRN tylenol provided. INT to RA/c. family at bedside. Pt able to get up to bathroom with SBA. Will continue to monitor.
--- NOTE | 2019-01-04 10:23 | NUR ---
Called Dr. Quinones, Cardiology, per his recommendations give all other am meds. Eat today, NPO after midnight tonight.
[2019-01-04 13:09] VITALS: BP 134/57; PULSE 88; TEMP 98.2
--- NOTE | 2019-01-04 14:26 | NUR ---
Clinical Geneticist met with patient and patient's daughter, Paulo (ph#[phone]) to discuss discharge planning. Patient lives with her other daughter, Taty (ph#[phone]). Patient sees Dr. Orellana for primary care and obtains medications from [facility]. Patient reports she was independent with ADLS prior to her fall. Patient has a walker at home although she doesn't use it that often. Patient uses a CPAP and oxygen that she obtained from [facility]. Patient states she has DPOA-HC, which designates Paulo. Patient states she would like to go home upon discharge, but that Hospitalist has discussed rehab upon discharge. Patient states she doesn't mind going somewhere, but just doesn't like to work with PT. Patient states if she does end up needing to go to rehab, she would like to go to [facility] or [facility] in [place] as her daughter works both places. Patient states she would not want Home Health because she has 5 dogs that she does not want to pin up while HH visits. SW will continue to follow to ensure safe discharge.
[2019-01-04 15:52] VITALS: BP 134/57; PULSE 91; TEMP 98.2
--- NOTE | 2019-01-04 19:04 | NUR ---
Pt doing well, up moving well now, feeling well, to bathroom with family. Eyesight is much improved per patient.
[2019-01-04 19:43] VITALS: BP 138/51; PULSE 107; TEMP 98.5
--- NOTE | 2019-01-04 21:04 | NUR ---
Sitting up in bed with eyes open. Family at bedside. Rates pain in left hip 8/10. Left eye with bruising and swelling. Eyeball itself red with some swelling. Patient says that vision in left eye is clear. Denies any head pain. Denies further needs at this time.
--- NOTE | 2019-01-04 21:16 | NUR ---
Rates pain in left hip 09/24. Administered pain medication as prescribed. Patient denies further needs at this time.
[2019-01-04 23:51] VITALS: BP 124/47; PULSE 106; TEMP 97.6
--- NOTE | 2019-01-05 00:40 | NUR ---
Rates pain in left hip /. Up to bathroom to urinate with stand by assist of 1. Gait steady. Returns to bed. Denies further needs at this time.
--- NOTE | 2019-01-05 01:08 | NUR ---
PT WEARS A CPAP AT HOME WITH A 2 LPM BLEED IN. PT HAS FACIAL TRAUMA TO HER LEFT EYE, WEARING HER CPAP MASK WOULD CAUSE MORE PAIN TO HER EYE. THEREFORE, PT IS ON 2LPM NC FOR THE TIME BEING. PT IS IN NO DISTRESS AND IS GUZMAN WELL. WILL CONTINUE TO MONITOR AND ASSESS. RN IS NOTIFIED OF PT WEARING A CPAP AND NOT WEARING IT AT THIS TIME
[2019-01-05 03:54] VITALS: BP 119/54; PULSE 98; TEMP 98.9
--- NOTE | 2019-01-05 04:00 | NUR ---
Lying in bed with eyes closed. Eyes open when name called out. Rates pain in left hip 06/24. Pain medication administered as prescribed per patient request. Patient denies further needs at this time.
[2019-01-05 07:33] LABS: BASO % 0.6 % (0.0-2.0); EOS # 0.3 (0.0-0.7); EOS % 4.8 % (0-4.0); GRAN # 3.6 (1.4-6.5); GRAN % 52.3 % (42.2-75.2); HEMOGLOBIN 11.8 g/dl (12.5-16.0); LYMPH # 1.9 (1.2-3.4); LYMPH % 27.4 % (20.0-51.0); MEAN CELL VOLUME 100 fl (80.0-100.0); MEAN CORPUSCULAR HEMOGLOBIN 33 pg (27.0-31.0); MEAN CORPUSCULAR HGB CONC 33 g/dl (33.0-37.0); MEAN PLATELET VOLUME 11.2 fl (7.4-10.4); MONO % 13.7 % (1.7-9.3); PLATELET COUNT 274 K/mm3 (130-400); RED BLOOD COUNT 3.56 M/mm3 (4.10-5.30); REDCELL DISTRIBUTION WIDTH-CV 12.9 % (11.5-14.5)
[2019-01-05 07:38] LABS: HEMATOCRIT 35.5 % (37.0-47.0)
[2019-01-05 07:41] LABS: CALCIUM 9.3 mg/dL (8.4-10.2); CREATININE, serum 0.95 (0.52-1.25); POTASSIUM 3.8 mmol/L (3.4-5.0)
--- NOTE | 2019-01-05 08:41 | NUR ---
Assessment completed, alert/oriented, vital signs stable, reports soreness to left knee/hip/face, I gave her Tylneol per her request, left facial swelling improved, Laceration is CELL LEAD and still has significant brusing, heart RRR/distal pulses are palpable, lungs CTA/ no resp.difficulty noted, she has been up and worked with PT and did well, daughter present and reports patient is back to her baseline, she is now up in chair and has taken her morning meds and is eating breakfast, denies other needs at [facility]
[2019-01-05 09:24] VITALS: BP 121/72; PULSE 100; TEMP 98.6
--- NOTE | 2019-01-05 09:33 | NUR ---
Initial visit; Patient thanked Private Secretary for looking in on her offering God's blessings and keeping her in Private Secretary's prayers.
[2019-01-05] MEDS ORDERED: SEROQUEL 2525 MG/TAB PO (10:44)
[2019-01-05] MEDS ORDERED: IMDUR 30MG30 MG/TAB PO (10:48)
[2019-01-05] MEDS ORDERED: PRINIVIL10 MG PO (10:49)
[2019-01-05] MEDS ORDERED: ROXICODONE 55 MG/TAB PO (10:52)
--- NOTE | 2019-01-05 12:58 | NUR ---
Final Armature Tester attended clinical rounds with the team. Patient to discharge home today with outpatient Physical Therapy. No additional concerns at this time.
--- NOTE | 2019-01-05 12:59 | NUR ---
Discharge orders discussed with the patient and her daughter, instructed to follow up with PCP/Cards/Ophtamology/PT/Psych as we have scheduled for her, discussed new medications and changes to previous home meds/ scripts sent to pharmacy for her, IV and tele removed, will be leaving with her daughter, I will escort her out by wheelchair
== END 2019-01-05 13:01 | disposition home or self-care (01) | DRG 125 ==
LOC: COL.ER 04:57 → MEDICAL 06:29
PROVIDERS: Emergency Medicine; Physician Assistant; ADMIT Internal Medicine
PROC: 08QPXZZ Repair Left Upper Eyelid, External Approach (ICD-10-PCS; principal; 2019-01-03)
DX: S05.42XA Penetrating wound of orbit with or without foreign body, left eye, initial encounter (principal); J44.9 Chronic obstructive pulmonary disease, unspecified; I10 Essential (primary) hypertension; M19.90 Unspecified osteoarthritis, unspecified site; H11.32 Conjunctival hemorrhage, left eye; M79.7 Fibromyalgia; K21.9 Gastro-esophageal reflux disease without esophagitis; E78.5 Hyperlipidemia, unspecified; G25.81 Restless legs syndrome; F31.9 Bipolar disorder, unspecified; S01.112A Laceration without foreign body of left eyelid and periocular area, initial encounter; S05.12XA Contusion of eyeball and orbital tissues, left eye, initial encounter; F25.9 Schizoaffective disorder, unspecified; I73.9 Peripheral vascular disease, unspecified; I25.10 Atherosclerotic heart disease of native coronary artery without angina pectoris; K58.9 Irritable bowel syndrome, unspecified; G40.909 Epilepsy, unspecified, not intractable, without status epilepticus; E66.9 Obesity, unspecified; W19.XXXA Unspecified fall, initial encounter; F41.1 Generalized anxiety disorder; G31.84 Mild cognitive impairment of uncertain or unknown etiology; G47.33 Obstructive sleep apnea (adult) (pediatric); Z85.528 Personal history of other malignant neoplasm of kidney; Z90.5 Acquired absence of kidney; Z79.82 Long term (current) use of aspirin; Z87.891 Personal history of nicotine dependence; Z86.73 Personal history of transient ischemic attack (TIA), and cerebral infarction without residual deficits; Z88.5 Allergy status to narcotic agent; Z88.1 Allergy status to other antibiotic agents; Z91.040 Latex allergy status; Z88.8 Allergy status to other drugs, medicaments and biological substances; Z91.048 Other nonmedicinal substance allergy status; Z90.49 Acquired absence of other specified parts of digestive tract; Z85.828 Personal history of other malignant neoplasm of skin; Z90.710 Acquired absence of both cervix and uterus; Z79.01 Long term (current) use of anticoagulants; Y92.89 Other specified places as the place of occurrence of the external cause; Y93.89 Activity, other specified; Y99.8 Other external cause status; Z99.81 Dependence on supplemental oxygen; Z95.5 Presence of coronary angioplasty implant and graft
CPT/HCPCS: 99223; 99232-AI; 99239; G0378; J1650; J2405; J3010; J7030

== ENCOUNTER → 2019-02-10 | Outpatient (CLI) | payer OTHER, MEDICARE ==
[~2019-02-10] MED LIST changes: +B-121000 MCG PO; +CROLOM 10 ML10 ML OP; +EFFEXOR-XR150 MG PO; +FOLIC ACID 11 MG/TA1 PO; +IMDUR 30MG30 MG/TAB PO; +IMDUR 60MG60 MG/TAB PO; +MULTIPLE VITAMI1 TA5 PO; +OTEZLA PO; +PLETAL50 MG PO; +PRINIVIL10 MG PO; +PRINIVIL40 MG PO; +ROXICODONE 55 MG/TAB PO; +SEROQUEL 2525 MG/TAB PO; +THEO-24 30300 MG/CAP PO; +TYLENOL 8 HR PO
== END ==
LOC: COL.VAS 12:30
DX: I65.23 Occlusion and stenosis of bilateral carotid arteries (principal)

== ENCOUNTER → 2019-02-14 | Outpatient (CLI) | payer OTHER, MEDICARE | LOC: BHSO 13:39 | DX: F25.0 Schizoaffective disorder, bipolar type (principal) | CPT/HCPCS: G0463 ==

== ENCOUNTER 2019-04-25 22:31 | Inpatient (IN) | payer OTHER, MEDICARE ==
[~2019-04-25] VITALS: Ht 157.5 cm; Wt 84.7 kg
[2019-04-25] MEDS ORDERED: LATUDA20 MG PO (22:41)
[2019-04-25 23:10] LABS: BASO % 0.2 % (0.0-2.0); GRAN % 84.9 % (42.2-75.2); HEMOGLOBIN 12.6 g/dl (12.5-16.0); LYMPH # 0.6 (1.2-3.4); LYMPH % 4.5 % (20.0-51.0); MEAN CELL VOLUME 95 fl (80.0-100.0); MEAN CORPUSCULAR HEMOGLOBIN 33 pg (27.0-31.0); MEAN CORPUSCULAR HGB CONC 35 g/dl (33.0-37.0); MEAN PLATELET VOLUME 11.4 fl (7.4-10.4); MONO # 1.2 (0.1-0.6); PLATELET COUNT 260 K/mm3 (130-400); RED BLOOD COUNT 3.84 M/mm3 (4.10-5.30); REDCELL DISTRIBUTION WIDTH-CV 14.1 % (11.5-14.5)
[2019-04-25 23:12] LABS: HEMATOCRIT 36.5 % (37.0-47.0)
[2019-04-25 23:16] LABS: ALBUMIN 3.7 gm/dL (3.5-5.0); BILIRUBIN,TOTAL 1.1 mg/dL (0.0-1.0); CALCIUM 9.4 mg/dL (8.4-10.2); CREATININE, serum 1.17 (0.52-1.25); TOTAL PROTEIN 7.5 gm/dL (6.4-8.2)
[2019-04-25 23:30] LABS: TROPONIN-I 0.924 ng/mL (0.000-0.035)
[2019-04-25 23:31] LABS: POTASSIUM 2.6 mmol/L (3.4-5.0)
[2019-04-25 23:36] LABS: INR 1.3 (0.8-3.0); PROTHROMBIN TIME 15.2 SECONDS (9.7-12.8)
[2019-04-26] VITALS (680 sets, daily range): BP systolic 99–142; BP diastolic 53–87; PULSE 101–167; TEMP 97.6–98.7; O2SAT 61–100
[2019-04-26 01:19] LABS: ARTERIAL BLD GAS O2 SATURATION 93.4 % (92-100); ARTERIAL BLD GAS TCO2 CT 20.2; ARTERIAL BLOOD GAS BASE EXCESS -4.1 (-2-2); ARTERIAL BLOOD GAS HCO3 19.3 meq/L (22-26); ARTERIAL BLOOD GAS PCO2 30.5 mmHg (35-45); ARTERIAL BLOOD GAS PO2 71.1 mmHg (80-100); ARTERIAL BLOOD GAS pH 7.42 (7.35-7.45)
--- NOTE | 2019-04-26 03:00 | NUR ---
Patient alert and oriented; attached to all monitors. HR afib RVR. Complaints of shortness of breath at rest. Assisted to raise hob 45 degrees. Hospitalist aware of patient's arrival.
--- NOTE | 2019-04-26 03:45 | NUR ---
Received order from Hospitalist to increase Amiodarone rate from 0.5 mg/min to 1 mg/min.
[2019-04-26] MEDS ORDERED: INDERAL60 MG PO (05:38)
[2019-04-26] MEDS ORDERED: LATUDA60 MG PO (05:39)
[2019-04-26] MEDS ORDERED: THEO-DUR 3300 MG/TAB PO (05:40)
[2019-04-26] MEDS ORDERED: CRESTOR20 MG PO (05:43)
[2019-04-26] MEDS ORDERED: TRILIPIX 135MG PO (05:45)
[2019-04-26] MEDS ORDERED: PROTONIX 40MG T40 MG PO (05:49)
[2019-04-26] MEDS ORDERED: OTEZLA PO (05:50)
[2019-04-26] MEDS ORDERED: FOLIC ACID 11 MG/TA1 PO (05:52)
[2019-04-26 07:06] LABS: MAGNESIUM 2.3 mg/dL (1.6-2.3)
[2019-04-26 07:19] LABS: TROPONIN-I 1.34 ng/mL (0.000-0.035)
[2019-04-26 08:00] LABS: THEOPHYLLINE 10.7 ug/mL (10.0-20.0)
[2019-04-26 10:27] LABS: ARTERIAL BLD GAS O2 SATURATION 87.2 % (92-100); ARTERIAL BLD GAS TCO2 CT 17.6; ARTERIAL BLOOD GAS HCO3 16.6 meq/L (22-26); ARTERIAL BLOOD GAS PCO2 31.4 mmHg (35-45); ARTERIAL BLOOD GAS PO2 55.3 mmHg (80-100); ARTERIAL BLOOD GAS pH 7.34 (7.35-7.45)
[2019-04-26 11:19] LABS: HEMOGLOBIN 11.3 g/dl (12.5-16.0); MEAN CELL VOLUME 98 fl (80.0-100.0); MEAN CORPUSCULAR HEMOGLOBIN 33 pg (27.0-31.0); MEAN CORPUSCULAR HGB CONC 33 g/dl (33.0-37.0); MEAN PLATELET VOLUME 11.7 fl (7.4-10.4); PLATELET COUNT 256 K/mm3 (130-400); RED BLOOD COUNT 3.45 M/mm3 (4.10-5.30); REDCELL DISTRIBUTION WIDTH-CV 14.4 % (11.5-14.5)
[2019-04-26 11:20] LABS: ALBUMIN 3.1 gm/dL (3.5-5.0); BILIRUBIN,TOTAL 0.7 mg/dL (0.0-1.0); CREATININE, serum 1.18 (0.52-1.25); TOTAL PROTEIN 6.6 gm/dL (6.4-8.2)
[2019-04-26 11:21] LABS: HEMATOCRIT 33.8 % (37.0-47.0)
[2019-04-26 11:48] LABS: COLLECTION METHOD CLEAN CATCH
[2019-04-26 12:16] LABS: BAND 57 % (0-10); LYMPHOCYTE 18 % (20.0-51.0); METAMYELOCYTE 9 % (0-0); NEUTROPHILS 10 % (42.0-75.2)
[2019-04-26 12:17] LABS: PLATELET ESTIMATE NORMAL (NORMAL); TOXIC GRANULATION PRESENT
[2019-04-26 12:23] LABS: PH 6 (5-8); SQUAMOUS EPITHELIAL None Seen /hpf; URINE APPEARANCE Cloudy; URINE BACTERIA None Seen /hpf; URINE BILIRUBIN Negative (NEGATIVE); URINE BLOOD Negative (NEGATIVE); URINE COLOR Yellow; URINE GLUCOSE Negative (NEGATIVE); URINE KETONE 2+ (NEGATIVE); URINE LEUKOCYTE ESTERASE Negative (NEGATIVE); URINE NITRATE Negative (NEGATIVE); URINE PROTEIN(semi-quant) Negative (NEGATIVE); URINE RBC None Seen /hpf; URINE UROBILINOGEN Negative (NEGATIVE)
--- NOTE | 2019-04-26 14:36 | NUR ---
Vancomycin Initial Dosing Pharmacy Note Ordering provider: Alfredito Vanegas MD Indication/duration: SEPSIS/PNA LABS: WBC 3.3, SCr 1.2, CrCl ~40 Recommendation: vancomycin 17 mg/kg Loading dose: 1.5 grams Maintenance dose: 1.25 grams every 24 hours Trough goal: 15-20 ug/mL. trough before 5th dose, 04/29 @ 1030
--- NOTE | 2019-04-26 14:48 | NUR ---
home health care social worker attended clinical rounds and met with patient and daughter, Taty Zhu ([phone]) , afterwards to discuss discharge planning. Patient states her daughter, Taty, lives with her. Patient states she is employed by [employer] and has their insurance primary, with Medicare secondary. Patient has a CPap at home. Taty states that her mother made advance directives and worker is checking with Hamzah Reyes, law office. Patient verbalized that she would not want ventilator support and desires to be a Full Code. Worker spoke with Dr Orellana's(primary care physician) nurse, Jelly, and confirmed that they do not have copies of advance directives on file. Worker provided Jelly's office with clinical information. Case Management to follow to assist with securing a safe discharge plan. Patient has a daughter (Paulo Zhu [phone]), that she thinks is listed as her durable power of noc technician for health care.
--- NOTE | 2019-04-26 19:31 | NUR ---
Report given to Jaylyn FERGUSON and care transfered.
[2019-04-27] VITALS (342 sets, daily range): BP systolic 46–204; BP diastolic 29–187; PULSE 87–117; TEMP 97.4–98.1; O2SAT 31–100
[2019-04-27 04:58] LABS: ALBUMIN 2.5 gm/dL (3.5-5.0); BILIRUBIN,TOTAL 0.5 mg/dL (0.0-1.0); CALCIUM 7.3 mg/dL (8.4-10.2); CREATININE, serum 1.1 (0.52-1.25); POTASSIUM 3.9 mmol/L (3.4-5.0); TOTAL PROTEIN 5.5 gm/dL (6.4-8.2)
--- NOTE | 2019-04-27 05:22 | NUR ---
Precedex placed on standby due to sudden hypotension.
--- NOTE | 2019-04-27 06:00 | NUR ---
PT was very restless at several points throughout the night, took off BiPap several times and significantly SOA after doing so. PT was oriented x3 but did not seem to track the need for BiPap, that she had a raines in, and that she was unable to stand up on her own while being attached to everything. Interventions such as pain management, repositioning, reorienting, concealing lines, and redirection were unsuccessful. [facility] notified and an order for Precedex was sent.
--- NOTE | 2019-04-27 06:30 | NUR ---
At appx. 0515, PT BP was noted to be 70's/40's. BP rechecked multiple times at different arms sites, both manual and BP. At 0522, Precedex was placed on standby and [facility] was notified. PT was easily arousable to voice and touch. Family notified of the situation and brought back to the PT room. At 0551 ROMY Castle notified of the situation as I believed [facility] was not responding quickly enough to the situation. At 0556, Dr. Lagunas notified of the situation and orders recieved. PT BP gradually came up with the ordered boluses and levophed was not started since the MAP goal was met.
--- NOTE | 2019-04-27 07:00 | NUR ---
Report given to PHYLLIS Beebe.
--- NOTE | 2019-04-27 08:00 | NUR ---
PT LETHARGIC D/T PRECEDEX GTT. PT ALERT AND ORIENTED X 3 BUT PATIENT IS FORGETTFUL AND ATTEMPTS TO PULL BIPAP MASK OFF AND PULLS ON EQUIPMENT. PT FOLLOWS COMMANDS. ACCESSORY MUSCLE USE NOTED. PT'S RESP 18-26. PT UNABLE TO COME OFF BIPAP D/T SOB AND WORK OF BREATHING. LUNGS DIMINISHED THROUGHOUT AND COARSE.
--- NOTE | 2019-04-27 09:00 | NUR ---
AFTER INFUSING KEPPRA PT'S BP DROPPED TO SBP IN 70S. PT SOMNOLENT AFTER INFUSION. PRECEDEX STOPPED AND PATIENT LAID FLAT. DR RUGGIERO PRESENT AND MADE AWARE. PROVIDER STATES TO GIVE 500ML BOLUS NOW AND TO WATCH PRESSURE OVER NEXT FEW MINS.
--- NOTE | 2019-04-27 10:26 | NUR ---
PT'S BP AFTER 500ML BOLUS NOW 96/49
[2019-04-27 10:49] LABS: PARTIAL THROMBOPLASTIN TIME 40.3 SECONDS (26.0-37.0)
--- NOTE | 2019-04-27 11:55 | NUR ---
SHORTLY AFTER INITATING LEVOPHED GTT PT BECAME TACHYCARDIC. PT NOTED TO BE IN AFIB WITH RVR. DR RUGGIERO PRESENT AND NOTIFIED. DR JOSEPH CALLED. 150MG IV AMIO BOLUS ORDERED AND TO INCREASE GTT TO 1 MG/MIN FOR NEXT COUPLE HOURS TO SEE IF PATIENT CONVERTS.
--- NOTE | 2019-04-27 12:31 | NUR ---
ground worker spoke with patient's daughters, Taty and Paulo, and confirmed that advance directives cannot be located. Worker provided information on the legal next of kin and both are aware that they, unitedly, would make the decisions if patient cannot do so. Paulo stated that she thinks she has a copy of advance directives at her house in [place], however, does not want to leave the bedside to retrieve them at this time. Worker offered support to daughters.
--- NOTE | 2019-04-27 13:52 | NUR ---
PT'S HR HAS IMPROVED AFTER AMIODARONE BOLUS AND INCREASE IN GTT RATE. HR NOW IS 89-105, PT STILL APPEARS TO BE IN ATRIAL FIB.
[2019-04-28] VITALS (13 sets, daily range): BP systolic 49–94; BP diastolic 22–74; PULSE 90; O2SAT 44–63
[2019-04-28 00:42] LABS: MEAN CORPUSCULAR HGB CONC 29 g/dl (33.0-37.0); PLATELET COUNT 219 K/mm3 (130-400); RED BLOOD COUNT 2.71 M/mm3 (4.10-5.30); REDCELL DISTRIBUTION WIDTH-CV 15.9 % (11.5-14.5)
[2019-04-28 00:49] LABS: HEMATOCRIT 30.9 % (37.0-47.0); MEAN CELL VOLUME 114 fl (80.0-100.0); MEAN CORPUSCULAR HEMOGLOBIN 33 pg (27.0-31.0)
[2019-04-28 01:07] LABS: ALBUMIN 2.3 gm/dL (3.5-5.0); BILIRUBIN,TOTAL 0.6 mg/dL (0.0-1.0); CALCIUM 7.3 mg/dL (8.4-10.2); MAGNESIUM 2.6 mg/dL (1.6-2.3); TOTAL PROTEIN 5.3 gm/dL (6.4-8.2)
[2019-04-28 01:13] LABS: CREATININE, serum 2.11 (0.52-1.25); PHOSPHOROUS 10.3 mg/dL (2.5-4.5)
[2019-04-28 01:14] LABS: POTASSIUM 6.3 mmol/L (3.4-5.0)
[2019-04-28 01:15] LABS: ANISOCYTOSIS 1+; BAND 74 % (0-10); LYMPHOCYTE 6 % (20.0-51.0); METAMYELOCYTE 4 % (0-0); NEUTROPHILS 15 % (42.0-75.2); PLATELET ESTIMATE NORMAL (NORMAL)
--- NOTE | 2019-04-28 01:25 | NUR ---
PIPO VILLA STATING TO INCREASE GTT ACCORDINGLY.
--- NOTE | 2019-04-28 01:50 | NUR ---
PIPO VILLA AT BEDSIDE GIVING ORDERS TO TITRATE.
--- NOTE | 2019-04-28 02:30 | NUR ---
WITHDRAW OF CARE INITIATED. FAMILY, RT, RN, AND PIPO VILLA AT BEDSIDE.
--- NOTE | 2019-04-28 03:00 | NUR ---
While giving bed bath to patient, it was noted by PHYLLIS Bravo and myself that the patient was mottling from the breastline to the knees. Feet were noted to be cold and pulses difficult to palpate. PT was difficult to arouse, work of breathing noted to be weaked. BP's were fluctuating from one to the next varying from 60s/30s on one and 120s/70s for the next in a span of 5 minutes, this had been happening all day. ROMY Castle was notified of these findings at 2348 and came down to assess patient. ROMY then spoke with Parker to coordinate a plan for interventions. I notified ROMY of critical lab values as soon as they were called (Potassium, CO2, WBC, Troponin). Family was brought back to the room and notified of the patient status change, agreed to having an arterial line placement done. Family requested a web producer be present to give final blessing and last rights to the patient. Paving Contractor arrived and prayed with family, Last Rights were read. Eventually, family decided to go comfort care and wanted to take off pressors, BiPap, and focus on making PT comfortable. All fluids and drips were turned off, Ativan and Morphine were administered per provider order. Time of called by ROMY Castle at 0250. PT cleaned, new gown placed, all IV's, central line, Barraza, and rectal tube were removed post-mortem. Family brought back in, condolences offered and invited to stay as long as they would like.
--- NOTE | 2019-04-28 10:51 | NUR ---
The patient at 0250 this day. There are no additional needs at this time.
== END 2019-04-28 06:55 | disposition expired | DRG 871 ==
LOC: COL.ER 22:31 → ICU 04-26 00:04
PROVIDERS: Emergency Medicine; Internal Medicine Pulmonary Disease; Nurse Practitioner Family; ADMIT Internal Medicine
PROC: 02HV33Z Insertion of Infusion Device into Superior Vena Cava, Percutaneous Approach (ICD-10-PCS; principal; 2019-04-26)
PROC: 5A09457 Assistance with Respiratory Ventilation, 24-96 Consecutive Hours, Continuous Positive Airway Pressure (ICD-10-PCS; 2019-04-26)
DX: A41.2 Sepsis due to unspecified staphylococcus (principal); J18.1 Lobar pneumonia, unspecified organism; I21.A1 Myocardial infarction type 2; R65.21 Severe sepsis with septic shock; J96.21 Acute and chronic respiratory failure with hypoxia; E87.2 Acidosis; J44.1 Chronic obstructive pulmonary disease with (acute) exacerbation; N17.9 Acute kidney failure, unspecified; I25.10 Atherosclerotic heart disease of native coronary artery without angina pectoris; E78.5 Hyperlipidemia, unspecified; M79.7 Fibromyalgia; B97.81 Human metapneumovirus as the cause of diseases classified elsewhere; K21.9 Gastro-esophageal reflux disease without esophagitis; M19.90 Unspecified osteoarthritis, unspecified site; F41.9 Anxiety disorder, unspecified; I48.0 Paroxysmal atrial fibrillation; G40.909 Epilepsy, unspecified, not intractable, without status epilepticus; F31.9 Bipolar disorder, unspecified; E87.5 Hyperkalemia; I73.9 Peripheral vascular disease, unspecified; E83.41 Hypermagnesemia; E66.9 Obesity, unspecified; E87.6 Hypokalemia; G25.81 Restless legs syndrome; L40.9 Psoriasis, unspecified; G47.33 Obstructive sleep apnea (adult) (pediatric); Z86.73 Personal history of transient ischemic attack (TIA), and cerebral infarction without residual deficits; Z90.711 Acquired absence of uterus with remaining cervical stump; Z90.49 Acquired absence of other specified parts of digestive tract; Z87.891 Personal history of nicotine dependence; Z68.34 Body mass index [BMI] 34.0-34.9, adult
CPT/HCPCS: 99233-AI; 99239; A4216; J0282; J0456; J0610; J0696; J1644; J1650; J1815; J1953; J2060; J2270; J2543; J2920; J3010; J3370; J3475; J3480; J7030; J7040; J7050; J7060